=== PATIENT | female | born 2000 | race Caucasian/White ===

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

== ENCOUNTER 2022-05-25 15:06 | Observation (INO) | payer OTHER ==
[~2022-05-25] VITALS: Ht 157.5 cm; Wt 75.9 kg
[2022-05-25 19:54] LABS: BASO # 0.1 10^3/uL (0.0-0.2); BASO % 0.7 % (0.0-1.0); EOS % 0.3 % (0.0-3.0); HEMATOCRIT 44.5 % (36.0-47.0); LYMPH # 1.7 10^3/uL (1.5-5.0); MEAN CORPUSCULAR HEMOGLOBIN 29.9 pg (27.0-33.0); MEAN CORPUSCULAR HGB CONC 33.7 g/dl (32.0-36.5); MEAN CORPUSCULAR VOLUME 88.8 fl (80.0-96.0); MONO # 0.9 10^3/uL (0.0-0.8); NEUTROPHILS # 10.4 10^3/uL (1.5-8.5); NEUTROPHILS % 78.7 % (36.0-66.0); PLATELET COUNT, AUTOMATED 369 10^3/uL (150-450); RED BLOOD COUNT 5.01 10^6/uL (4.00-5.40); WHITE BLOOD COUNT 13.2 10^3/uL (4.0-10.0)
[2022-05-25 20:28] LABS: ALBUMIN 4.2 G/DL (3.2-5.2); ALKALINE PHOSPHATASE 78 U/L (46-116); ALT/SGPT 32 U/L (7.0-40); AST/SGOT 35 U/L (<34); BILIRUBIN,DIRECT 0.2 MG/DL (<0.4); BILIRUBIN,TOTAL 0.5 MG/DL (0.3-1.2); BLOOD UREA NITROGEN 16 MG/DL (9-23); CARBON DIOXIDE LEVEL 20 MMOL/L (20-31); CHLORIDE LEVEL 102 MMOL/L (98-107); CREATININE FOR GFR 0.87 MG/DL (0.55-1.30); GLUCOSE, FASTING 174 MG/DL (60-100); POTASSIUM SERUM 4.2 MMOL/L (3.5-5.1); RSV AMPLIFICATION NEGATIVE (NEGATIVE); SODIUM LEVEL 135 MMOL/L (136-145); TOTAL PROTEIN 7.9 G/DL (5.7-8.2)
[2022-05-25 20:51] LABS: ETHYL ALCOHOL (ETHANOL) 0.003 % (0.000-0.010)
[2022-05-25 20:52] LABS: ACETAMINOPHEN LEVEL < 2.0 UG/ML (10.0-20.0); SALICYLATE LEVEL 6.1 MG/DL (<30)
[2022-05-25 21:17] LABS: CANNABINOIDS URINE NEGATIVE (NEGATIVE); METHADONE URINE NEGATIVE (NEGATIVE); OPIATES URINE NEGATIVE (NEGATIVE); PHENCYCLIDINE URINE NEGATIVE (NEGATIVE)
[2022-05-25 21:18] LABS: AMPHETAMINES LEVEL URINE NEGATIVE (NEGATIVE); BARBITURATES URINE NEGATIVE (NEGATIVE); BENZODIAZEPINES URINE NEGATIVE (NEGATIVE); COCAINE METABOLITE URINE NEGATIVE (NEGATIVE)
[2022-05-25] MEDS ORDERED: LATU40TA2 PO (21:36)
[2022-05-25] MEDS ORDERED: VALB40CA PO (21:36)
[2022-05-25] MEDS ORDERED: LATU1TAB PO (21:36)
[2022-05-25] MEDS ORDERED: HOME MED LIST COMPLETE! XX SCH (21:40)
[2022-05-25] MEDS ORDERED: FOSFOMYCIN TROMETHAMINE 3 GM POWDER PACKET (MONUROL) PO ONE (23:25)
[2022-05-25] MEDS ORDERED: ACETAMINOPHEN TAB 650MG DOSE (2X325MG) PO PRN (23:30)
[2022-05-25] MEDS ORDERED: GLUCAGON INJ 1MG VIAL SC PRN (23:30)
[2022-05-25] MEDS ORDERED: GLUCOSE 4GM CHEW TABLET PO PRN (23:30)
[2022-05-25] MEDS ORDERED: DEXTROSE 50% 50ML SYRINGE IV PRN (23:30)
[2022-05-26] MEDS ORDERED: UNRESOLVED PATIENT OWN MED ORDER XX SCH (00:01)
[2022-05-26 00:44] LABS: HEMOGLOBIN A1c 5.3 % (4.0-6.0)
[2022-05-26 01:15] VITALS: BP 141/98
[2022-05-26 06:00] VITALS: BP 138/83
[2022-05-26] MEDS: INSULIN LISPRO (NovoLOG) PER UNIT SC SCH ×2 (06:00)
[2022-05-26 07:41] LABS: BLOOD UREA NITROGEN 16 MG/DL (9-23); CALCIUM LEVEL 8.7 MG/DL (8.5-10.1); CARBON DIOXIDE LEVEL 23 MMOL/L (20-31); CHLORIDE LEVEL 103 MMOL/L (98-107); CREATININE FOR GFR 0.89 MG/DL (0.55-1.30); GLUCOSE, FASTING 94 MG/DL (60-100); POTASSIUM SERUM 4.2 MMOL/L (3.5-5.1); SODIUM LEVEL 138 MMOL/L (136-145)
[2022-05-26] MEDS ORDERED: LORazepam 2 MG/ML 1ML VIAL IV PRN (11:15)
[2022-05-26 11:25] LABS: BASO # 0.1 10^3/uL (0.0-0.2); BASO % 0.7 % (0.0-1.0); EOS # 0.1 10^3/uL (0.0-0.5); EOS % 0.5 % (0.0-3.0); HEMOGLOBIN 14.5 g/dl (12.0-15.5); LYMPH # 2.5 10^3/uL (1.5-5.0); LYMPH % 22.3 % (24.0-44.0); MEAN CORPUSCULAR HEMOGLOBIN 30.1 pg (27.0-33.0); MEAN CORPUSCULAR VOLUME 91.5 fl (80.0-96.0); MONO % 8.4 % (2.0-8.0); NEUTROPHILS # 7.7 10^3/uL (1.5-8.5); NEUTROPHILS % 67.8 % (36.0-66.0); PLATELET COUNT, AUTOMATED 327 10^3/uL (150-450); RED BLOOD COUNT 4.81 10^6/uL (4.00-5.40); WHITE BLOOD COUNT 11.4 10^3/uL (4.0-10.0)
[2022-05-26] MEDS: ENOXAPARIN 40MG/0.4ML SYRINGE (J1650 PER 10MG) SC SCH (12:06)
[2022-05-26] MEDS ORDERED: OLANZapine INTRAMUSCULAR 10MG VIAL IM PRN (17:20)
[2022-05-26 17:30] VITALS: BP 141/102
[2022-05-26] MEDS: INGREZZA 40 MG PO SCH (17:54)
[2022-05-26 18:08] VITALS: BP 122/98
[2022-05-26] MEDS: NS 1,000 ML IV SCH (19:09)
[2022-05-26 21:00] VITALS: BP 124/88
[2022-05-26] MEDS: LORazepam 2 MG TAB PO SCH (21:09)
[2022-05-26] MEDS: LURASIDONE 20 MG TAB (LATUDA) PO SCH (21:09)
[2022-05-27] MEDS: NS 1,000 ML IV SCH ×2 (05:53→17:21)
[2022-05-27 06:00] VITALS: BP 121/65
[2022-05-27 08:09] LABS: BASO # 0.1 10^3/uL (0.0-0.2); BASO % 1.1 % (0.0-1.0); EOS # 0.1 10^3/uL (0.0-0.5); EOS % 1.4 % (0.0-3.0); HEMATOCRIT 41.6 % (36.0-47.0); HEMOGLOBIN 13.8 g/dl (12.0-15.5); LYMPH # 1.8 10^3/uL (1.5-5.0); LYMPH % 22.6 % (24.0-44.0); MEAN CORPUSCULAR HGB CONC 33.2 g/dl (32.0-36.5); MEAN CORPUSCULAR VOLUME 90.4 fl (80.0-96.0); MONO # 0.6 10^3/uL (0.0-0.8); MONO % 8.1 % (2.0-8.0); NEUTROPHILS # 5.2 10^3/uL (1.5-8.5); NEUTROPHILS % 66.4 % (36.0-66.0); PLATELET COUNT, AUTOMATED 320 10^3/uL (150-450); WHITE BLOOD COUNT 7.9 10^3/uL (4.0-10.0)
[2022-05-27 08:42] LABS: BLOOD UREA NITROGEN 12 MG/DL (9-23); CALCIUM LEVEL 8.4 MG/DL (8.5-10.1); CARBON DIOXIDE LEVEL 23 MMOL/L (20-31); CHLORIDE LEVEL 106 MMOL/L (98-107); CREATININE FOR GFR 0.86 MG/DL (0.55-1.30); GLUCOSE, FASTING 119 MG/DL (60-100); MAGNESIUM LEVEL 1.8 MG/DL (1.8-2.4); POTASSIUM SERUM 4.1 MMOL/L (3.5-5.1); SODIUM LEVEL 136 MMOL/L (136-145)
[2022-05-27] MEDS: ENOXAPARIN 40MG/0.4ML SYRINGE (J1650 PER 10MG) SC SCH (09:01)
[2022-05-27] MEDS: LORazepam 2 MG TAB PO SCH ×2 (09:01→22:03)
[2022-05-27 10:32] LABS: FREE T4 1.17 NG/DL (0.83-1.43); THYROID STIMULATING HORMONE 1.469 uIU/ML (0.48-4.17)
[2022-05-27 14:00] VITALS: BP 119/76
[2022-05-27] MEDS: INGREZZA 40 MG PO SCH (17:21)
[2022-05-27] MEDS: LURASIDONE 20 MG TAB (LATUDA) PO SCH (22:01)
[2022-05-27 22:11] VITALS: BP 112/71
[2022-05-28 06:10] LABS: HEMATOCRIT 39.5 % (36.0-47.0); HEMOGLOBIN 12.6 g/dl (12.0-15.5); MEAN CORPUSCULAR HEMOGLOBIN 29.3 pg (27.0-33.0); MEAN CORPUSCULAR HGB CONC 31.9 g/dl (32.0-36.5); MEAN CORPUSCULAR VOLUME 91.9 fl (80.0-96.0); PLATELET COUNT, AUTOMATED 267 10^3/uL (150-450); WHITE BLOOD COUNT 8.8 10^3/uL (4.0-10.0)
[2022-05-28 06:44] LABS: BLOOD UREA NITROGEN 9 MG/DL (9-23); CALCIUM LEVEL 8.4 MG/DL (8.5-10.1); CARBON DIOXIDE LEVEL 25 MMOL/L (20-31); CHLORIDE LEVEL 110 MMOL/L (98-107); CREATININE FOR GFR 0.79 MG/DL (0.55-1.30); GLUCOSE, FASTING 93 MG/DL (60-100); POTASSIUM SERUM 4.2 MMOL/L (3.5-5.1); SODIUM LEVEL 141 MMOL/L (136-145)
[2022-05-28] MEDS: NS 1,000 ML IV SCH (06:58)
[2022-05-28 07:03] VITALS: BP 112/84
[2022-05-28] MEDS: LORazepam 2 MG TAB PO SCH ×2 (10:09→20:04)
[2022-05-28] MEDS: ENOXAPARIN 40MG/0.4ML SYRINGE (J1650 PER 10MG) SC SCH (10:09)
[2022-05-28] MEDS ORDERED: MAALOX 30 ML SUSP *UDC PO PRN (10:35)
[2022-05-28] MEDS: OLANZapine 5 MG TAB PO PRN (12:42)
[2022-05-28] MEDS: INGREZZA 40 MG PO SCH (17:24)
[2022-05-28 20:00] VITALS: BP 112/78
[2022-05-28] MEDS: LURASIDONE 20 MG TAB (LATUDA) PO SCH (20:05)
[2022-05-29 06:18] VITALS: BP 110/58
[2022-05-29] MEDS: ENOXAPARIN 40MG/0.4ML SYRINGE (J1650 PER 10MG) SC SCH (09:20)
[2022-05-29] MEDS: LORazepam 2 MG TAB PO SCH ×2 (09:20→20:35)
[2022-05-29] MEDS: INGREZZA 40 MG PO SCH (17:17)
[2022-05-29] MEDS: LURASIDONE 20 MG TAB (LATUDA) PO SCH (20:35)
[2022-05-29] MEDS: OLANZapine 5 MG TAB PO PRN (21:07)
[2022-05-30 06:35] VITALS: BP 131/79
[2022-05-30] MEDS: LORazepam 2 MG TAB PO SCH ×2 (10:09→20:23)
[2022-05-30] MEDS: ENOXAPARIN 40MG/0.4ML SYRINGE (J1650 PER 10MG) SC SCH (10:13)
[2022-05-30] MEDS: INGREZZA 40 MG PO SCH (17:44)
[2022-05-30] MEDS: LURASIDONE 20 MG TAB (LATUDA) PO SCH (20:23)
[2022-05-31 06:33] VITALS: BP 111/63
[2022-05-31] MEDS: LORazepam 2 MG TAB PO SCH (09:37)
[2022-05-31] MEDS: ENOXAPARIN 40MG/0.4ML SYRINGE (J1650 PER 10MG) SC SCH (09:38)
[2022-05-31] MEDS: OLANZapine 5 MG TAB PO PRN (10:19)
[2022-05-31] MEDS ORDERED: LORA2TA PO ×2 (11:06→11:20)
[2022-05-31] MEDS ORDERED: OLAN1TAB16 PO ×2 (11:06→11:20)
[2022-05-31] MEDS ORDERED: MIRA3350 PO (11:21)
== END 2022-05-31 15:15 | disposition home or self-care (01) ==
LOC: M ED 15:06 → EDSEX 15:06 → EDUNIT# 15:06 → EDBD 15:06 → M ED INP 15:07 → M MS5PR 05-26 01:20
PROVIDERS: ADMIT Internal Medicine; ATTEND Internal Medicine
DX: F91.8 Other conduct disorders (principal); R45.6 Violent behavior; F79 Unspecified intellectual disabilities; G24.01 Drug induced subacute dyskinesia; D72.829 Elevated white blood cell count, unspecified; F43.10 Post-traumatic stress disorder, unspecified; F41.0 Panic disorder [episodic paroxysmal anxiety]; F32.A Depression, unspecified; Z88.1 Allergy status to other antibiotic agents; Z91.012 Allergy to eggs; Z86.16 Personal history of COVID-19; Z79.899 Other long term (current) drug therapy
CPT/HCPCS: 36415; 80048; 80076; 80143; 80307; 81001; 82077; 83036; 83735; 84439; 84443; 85025; 85027; 87086; 87631; 92526; 92610; 96360; 96361; 96372; 97116; 97162; 97165; 97530; 99284; J1650; S0166

== ENCOUNTER → 2023-02-06 | Day surgery (SDC) | payer OTHER ==
[~2023-02-06] VITALS: Ht 167.6 cm; Wt 83.0 kg
[~2023-02-06] MED LIST: LATU1TAB PO; LATU40TA2 PO; LIDOCAINE 2% 100MG/5ML SDV (FOR ANES.) As Ordered ONE; LORA1TAB23 PO; LORA2TA PO; MIRA3350 PO; NS 1,000 ML IV ONE; OLAN1TAB16 PO; OMEP1CAP73 PO; PROA1AER2 INH; SENN-186 PO; VALB40CA PO; VITA100093 PO; fentaNYL 100 MCG/2 ML INJECTION As Ordered ONE; propofoL 200 MG/20 ML VIAL As Ordered ONE
[2023-02-06 13:56] VITALS: BP 95/64; TEMP 97.2; O2SAT 99
== END | disposition home or self-care (01) ==
LOC: M OPP 10:10
PROVIDERS: ATTEND Internal Medicine Gastroenterology
DX: K64.8 Other hemorrhoids (principal); R19.4 Change in bowel habit; R10.84 Generalized abdominal pain; R13.10 Dysphagia, unspecified; R12 Heartburn; Z79.51 Long term (current) use of inhaled steroids; Z79.83 Long term (current) use of bisphosphonates; Z79.899 Other long term (current) drug therapy; Z88.1 Allergy status to other antibiotic agents; Z91.012 Allergy to eggs
CPT/HCPCS: 43235; 45378; J3010